=== PATIENT | female | born 1980 | race Caucasian/White ===

== ENCOUNTER 2018-05-08 12:53 | Outpatient (CLI) | payer OTHER ==
--- NOTE | 2018-05-08 16:07 | ULT ---
LEFT BREAST ULTRASOUND: Date: 05/08/18 HISTORY: Palpable left breast abnormality. FINDINGS: Correlation is made with mammogram from same date. Sonographic evaluation of the region of palpable concern in the retroareolar aspect of the left breas t demonstrates no abnormality. IMPRESSION: BIRADS Category 2 - Benign findings. Return to age-appropriate screening based on risk factors. Further evaluation (incl biopsy) of region of palpable concern should be based on clinical findings/s uspicion. POS: OFF
== END 2018-05-08 12:54 | disposition home or self-care (01) ==
LOC: BICMAMMO 12:53
PROVIDERS: ATTEND Obstetrics & Gynecology
DX: N63.20 Unspecified lump in the left breast, unspecified quadrant (principal)
CPT/HCPCS: 77066; G0279

== ENCOUNTER 2023-04-18 10:46 | Outpatient (CLI) | payer BC | END 2023-04-18 10:47 | disposition home or self-care (01) | LOC: BICULT 10:46 | PROVIDERS: ATTEND Internal Medicine | DX: D24.1 Benign neoplasm of right breast (principal) ==

== ENCOUNTER 2023-10-14 08:17 | Outpatient (CLI) | payer BC | END 2023-10-14 08:18 | disposition home or self-care (01) | LOC: BICMAMMO 08:17 | PROVIDERS: ATTEND Internal Medicine | DX: R92.8 Other abnormal and inconclusive findings on diagnostic imaging of breast (principal); N63.11 Unspecified lump in the right breast, upper outer quadrant | CPT/HCPCS: 77066; G0279 ==

== ENCOUNTER 2024-04-16 10:50 | Outpatient (CLI) | payer BC | END 2024-04-16 10:51 | disposition home or self-care (01) | LOC: BICULT 10:50 | PROVIDERS: ATTEND Internal Medicine | DX: N63.11 Unspecified lump in the right breast, upper outer quadrant (principal) ==